=== PATIENT | female | born 1970 | race Caucasian/White ===

== ENCOUNTER 2023-04-06 12:42 | Emergency (ER) | payer SELFPAY ==
[2023-04-06 14:02] LABS: SARS-CoV-2 NAA Rapid Test DETECTED (NotDetected)
== END 2023-04-06 14:20 | disposition home or self-care (01) ==
LOC: CSHERS 12:42
DX: U07.1 COVID-19 (principal); I25.10 Atherosclerotic heart disease of native coronary artery without angina pectoris; F17.210 Nicotine dependence, cigarettes, uncomplicated
CPT/HCPCS: 99283

== ENCOUNTER 2024-03-13 15:47 | Emergency (ER) | payer SELFPAY ==
[2024-03-13] MEDS ORDERED: Ketorolac Tromethamine 30 MG (1 mL) VIAL ONE (16:23)
== END 2024-03-13 18:37 | disposition home or self-care (01) ==
LOC: CSHERS 15:47
DX: H92.01 Otalgia, right ear (principal); B00.89 Other herpesviral infection; R51.9 Headache, unspecified; F17.210 Nicotine dependence, cigarettes, uncomplicated
CPT/HCPCS: 70450; 87081; 87430; 96372; J1885